=== PATIENT | female | born 1960 | race Caucasian/White ===

== ENCOUNTER 2019-12-26 00:49 | Day surgery (SDC) | payer OTHER, SELFPAY ==
[2019-12-20 12:55] VITALS: BMI 27.8
[2019-12-26] MEDS: LACTATED RINGERS 1,000 ML 150 ML IV CONT (09:05)
[2019-12-26 09:08] LABS: Glucose Point of Care 192 (65-105)
[2019-12-26 09:12] VITALS: BP 152/81; PULSE 50; RESP 16; TEMP 36.6; O2SAT 100; BMI 26.9
--- NOTE | 2019-12-26 09:29 | WPDANESEPPF ---
Anes - Initial Pre Proc Eval Procedure: Operation Date: 12/26/19 09:30 Proposed Procedures p Colonoscopy - Arturo Rosenbaum MD Date/Time: 12/26/19 09:29 Surgeon: Arturo Rosenbaum MD Pre Op Diagnosis: diarrhea Patient Data Age: 59 Gender: F Height: 5 ft 7 in Weight: 78 kg Last Vital Signs Temp 97.8 F 12/26/19 09:12 Pulse 50 L 12/26/19 09:12 Resp 16 12/26/19 09:12 BP 152/81 H 12/26/19 09:12 Pulse Ox 100 12/26/19 09:12 Allergies Allergy/AdvReac Type Severity Reaction Status Date / Time No Known Allergies Allergy Verified 12/26/19 08:49 Home Medications Medication Instructions Recorded Confirmed Type apremilast [Otezla] 30 mg PO BID 12/20/19 12/26/19 History fluoxetine 20 mg PO DAILY 12/20/19 12/26/19 History glipizide 5 mg PO BID 12/20/19 12/26/19 History lisinopril 20 mg PO DAILY 12/20/19 12/26/19 History metoprolol tartrate 50 mg PO BID 12/20/19 12/26/19 History omeprazole 20 mg PO BID 12/20/19 12/26/19 History simvastatin 20 mg PO DAILY 12/20/19 12/26/19 History Laboratory Tests 12/26/19 09:03 POC Capillary Glucose 192 mg/dl H mg/dl (65-105) Patient hx anesthesia problems: none Family hx anesthesia problems: none [facility] Past Medical History Medical History (Updated 12/26/19 @ 09:29 by Dileep Mims MD) Diabetes GERD (gastroesophageal reflux disease) Hyperlipidemia Social History Social History Smoking status: Never smoker Alcohol intake: current Anes - Eval Final PreProcedure Day of Procedure 12/26/19 09:29 Patient weight: normal Heart: regular rate and rhythm Lungs: clear to auscultation Airway: Mallampati scale class II Neurological: alert and oriented Last oral intake: >/= 8 hours ASA classification: III Emergent: no Anesthetic plan: proceed Anesthesia type and monitoring: general GIVS and standard monitoring Informed Consent: The patient's anesthetic plan and its attendant risks and benefits were discussed with the patient/family/POA. Questions were solicited and answers provided to the satisfaction of the patient/family/POA.
--- NOTE | 2019-12-26 09:38 | WPDGICN ---
Assessment and Plan Assessment and plan (1) Diarrhea: Code(s): R19.7 - Diarrhea, unspecified Status: Acute Assessment and Plan: patient has chronic diarrhea. This started after a trip to [place]. She is prepared for colonoscopy today and a colonoscopy will be performed both for screening purposes as well as because of diarrhea. Stool cultures will be obtained subsequently. A trial of fiber supplements for possible diabetic diarrhea and/or irritable bowel syndrome. Follow-up in the office anticipated in several weeks. GI Consult Note Consult date/time: 12/26/19 09:38 HPI: Arcadio Roper is a 59 year old female Seen in evaluation at the request of NOBLE Bautista. Patient presents for colonoscopy. She reports a 1 year history of chronic diarrhea. She states that she typically will have soft to watery stools to 2-3 a day. Has been present for at least 1 year. She reports traveling to [place] 1 year ago. She denies any abdominal pain. She denies any bleeding. She denies any fever. She does notice fecal urgency. Diarrhea typically only occurs during the day. She has undergone no diagnostic or therapeutic testing. Past medical history is significant for diabetes, hypertension, elevated cholesterol. There has been no recent change in her medications. Family history is noncontributory. No one else in the family has diarrhea. There is no family history of colon or rectal disease. Patient's last colonoscopy was 10 years ago was unremarkable. Review of Systems Review of Systems: All systems reviewed & are unremarkable except as noted in HPI and below PMFSH Past Medical History Medical History Diabetes GERD (gastroesophageal reflux disease) Hyperlipidemia Social History Social History Smoking status: Never smoker Alcohol intake: current Meds Home Medications and Allergies Home Medications Medication Instructions Recorded Confirmed Type apremilast [Otezla] 30 mg PO BID 12/20/19 12/26/19 History fluoxetine 20 mg PO DAILY 12/20/19 12/26/19 History glipizide 5 mg PO BID 12/20/19 12/26/19 History lisinopril 20 mg PO DAILY 12/20/19 12/26/19 History metoprolol tartrate 50 mg PO BID 12/20/19 12/26/19 History omeprazole 20 mg PO BID 12/20/19 12/26/19 History simvastatin 20 mg PO DAILY 12/20/19 12/26/19 History Allergies Allergy/AdvReac Type Severity Reaction Status Date / Time No Known Allergies Allergy Verified 12/26/19 08:49 Vital Signs Vital Signs - 24 hr 12/26/19 09:12 Temperature 36.6 C Pulse Rate 50 L Respiratory Rate 16 Blood Pressure 152/81 H Pulse Oximetry 100 Exam Narrative: Exam Narrative: Physical exam reveals Vital Signs to be stable. HEENT exam unremarkable. She is anicteric. Lungs are clear to auscultation and percussion. Heart is without murmur or extra sounds. Abdominal exam bowel sounds are present soft nontender with no organomegaly. Digital external rectal exam is normal
[2019-12-26 09:50] VITALS: BP 115/62; PULSE 48; RESP 16; O2SAT 99
[2019-12-26 10:00] VITALS: BP 128/64; PULSE 48; RESP 16; O2SAT 100
[2019-12-26 10:10] VITALS: BP 138/68; PULSE 44; RESP 18; O2SAT 100
== END 2019-12-26 10:36 | disposition home or self-care (01) ==
PROVIDERS: PCP Physician Assistant; Visit Provider Internal Medicine Gastroenterology
PROC: 0DJD8ZZ Inspection of Lower Intestinal Tract, Via Natural or Artificial Opening Endoscopic (ICD-10-PCS; CPT 45378; principal; 2019-12-26 09:30)
DX: R19.7 Diarrhea, unspecified (principal); D12.0 Benign neoplasm of cecum; D12.2 Benign neoplasm of ascending colon; K64.8 Other hemorrhoids; I10 Essential (primary) hypertension; E11.9 Type 2 diabetes mellitus without complications; E78.5 Hyperlipidemia, unspecified; K21.9 Gastro-esophageal reflux disease without esophagitis; Z79.84 Long term (current) use of oral hypoglycemic drugs
CPT/HCPCS: 45385; 88305; J7120